=== PATIENT | female | born 1965 | race Caucasian/White ===

== ENCOUNTER 2020-04-27 18:42 | Inpatient (IN) | payer OTHER ==
[~2020-04-27] VITALS: Ht 160 cm; Wt 81.6 kg
[2020-04-27 19:11] LABS: HEMOGLOBIN 10.6 gm/dl (12.3-15.3); RED BLOOD COUNT 3.64 M/UL (4.00-5.10); WHITE BLOOD COUNT 14.1 K/UL (4.5-11.0)
[2020-04-27 19:31] LABS: BUN/CREATININE RATIO 61 (0-10)
[2020-04-28 04:25] LABS: WHITE BLOOD COUNT 13.8 K/UL (4.5-11.0)
[2020-04-28 04:44] LABS: RED BLOOD COUNT 3.09 M/UL (4.00-5.10)
[2020-04-28 04:49] LABS: BUN/CREATININE RATIO 58 (0-10)
[2020-04-28] MEDS ORDERED: PAXIL20 MG PO (13:14)
[2020-04-28] MEDS ORDERED: GLIPIZIDE5 MG PO (13:14)
[2020-04-28] MEDS ORDERED: AMANTADINE50 MG/5 ML GT (13:14)
[2020-04-28] MEDS ORDERED: TEGRETOL 200 M200 MG PO (13:15)
[2020-04-28] MEDS ORDERED: LIPITOR20 MG PO (13:15)
[2020-04-28] MEDS ORDERED: BISACODYL10 MG PR (13:15)
[2020-04-28] MEDS ORDERED: IPRAT-ALBUT 0.5-3 ML INH (13:16)
[2020-04-28] MEDS ORDERED: DAILY VALUE1 EACH PO (13:16)
[2020-04-28] MEDS ORDERED: CLARITIN10 MG PO (13:16)
[2020-04-28] MEDS ORDERED: PROTONIX40 MG PO (13:17)
[2020-04-28] MEDS ORDERED: ASPIRIN81 MG GT (13:17)
[2020-04-28] MEDS ORDERED: GLUCOPHAGE1000 MG PO (13:17)
[2020-04-28] MEDS ORDERED: LOPRESSOR50 MG PO (13:17)
[2020-04-28] MEDS ORDERED: MIRALAX17 GM PO (13:17)
[2020-04-28] MEDS ORDERED: IBUPROFEN200 MG PO (13:18)
[2020-04-28] MEDS ORDERED: TECFIDERA1 EACH PO (13:21)
[2020-04-28 19:14] LABS: ACINETOBACTER BAUMANNII Not Detected (Negative); CANDIDA ALBICANS Not Detected (Negative); CANDIDA KRUSEI Not Detected (Negative); CANDIDA TROPICALIS Not Detected (Negative); ENTEROCOCCUS Not Detected (Negative); ESCHERICHIA COLI Not Detected (Negative); HAEMOPHILUS INFLUENZAE Not Detected (Negative); KLEBSIELLA OXYTOCA Not Detected (Negative); KLEBSIELLA PNEUMONIAE Not Detected (Negative); KPC-CARBAPENEM-RESISTANCE GENE Not Detected (Negative); PROTEUS Not Detected (Negative); PSEUDOMONAS AERUGINOSA Not Detected (Negative); SERRATIA MARCESANS Not Detected (Negative); STAPHYLOCOCCUS AUREUS Not Detected (Negative); STREP AGALACTIAE (GROUP B) Not Detected (Negative); STREP PYOGENES (GROUP A) Not Detected (Negative); STREPTOCOCCUS Not Detected (Negative); vanA/B (VANCOMYCIN RESIST GENE Not Detected (Negative)
[2020-04-28 20:40] LABS: mecA (METHICILLIN RESIST GENE DETECTED (Negative)
[2020-04-28 20:42] LABS: STAPHYLOCOCCUS DETECTED (Negative)
[2020-04-29 03:59] LABS: HEMOGLOBIN 7.8 gm/dl (12.3-15.3)
[2020-04-29 04:00] LABS: RED BLOOD COUNT 2.66 M/UL (4.00-5.10); WHITE BLOOD COUNT 9.1 K/UL (4.5-11.0)
[2020-04-29 04:36] LABS: BUN/CREATININE RATIO 55 (0-10)
[2020-04-30 06:37] LABS: HEMOGLOBIN 7.6 gm/dl (12.3-15.3); RED BLOOD COUNT 2.61 M/UL (4.00-5.10); WHITE BLOOD COUNT 8.4 K/UL (4.5-11.0)
[2020-04-30 07:13] LABS: BUN/CREATININE RATIO 57 (0-10)
[2020-05-01 06:43] LABS: HEMOGLOBIN 7.7 gm/dl (12.3-15.3); RED BLOOD COUNT 2.66 M/UL (4.00-5.10); WHITE BLOOD COUNT 7.1 K/UL (4.5-11.0)
[2020-05-01 08:31] LABS: BUN/CREATININE RATIO 36 (0-10)
[2020-05-01 19:08] LABS: ADENOVIRUS F 40/41 Not Detected (Not Detected); ASTROVIRUS Not Detected (Not Detected); C DIFFICILE TOXIN A/B Not Detected (Not Detected); CAMPYLOBACTER Not Detected (Not Detected); CRYPTOSPORIDIUM Not Detected (Not Detected); CYCLOSPORA CAYETANENSIS Not Detected (Not Detected); ENTAMOEBA HISTOLYTICA Not Detected (Not Detected); ENTEROAGGREGATIVE E COLI Not Detected (Not Detected); ENTEROPATHOGENIC E COLI Not Detected (Not Detected); ENTEROTOXIGENIC E COLI Not Detected (Not Detected); GIARDIA LAMBLIA Not Detected (Not Detected); NOROVIRUS GI/GII Not Detected (Not Detected); PLESIOMONAS SHIGELLOIDES Not Detected (Not Detected); ROTAVIRUS A Not Detected (Not Detected); SALMONELLA Not Detected (Not Detected); SAPOVIRUS Not Detected (Not Detected); SHIGA-TOXIN-PRODUCING E COLI Not Detected (Not Detected); SHIGELLA/ENTEROINVASIVE E COLI Not Detected (Not Detected); VIBRIO Not Detected (Not Detected); VIBRIO CHOLERAE Not Detected (Not Detected); YERSINIA ENTEROCOLITICA Not Detected (Not Detected)
[2020-05-02 04:54] LABS: HEMOGLOBIN 8.8 gm/dl (12.3-15.3)
[2020-05-02 04:55] LABS: RED BLOOD COUNT 3.06 M/UL (4.00-5.10); WHITE BLOOD COUNT 8.9 K/UL (4.5-11.0)
[2020-05-02 05:19] LABS: BUN/CREATININE RATIO 39 (0-10)
--- NOTE | 2020-05-02 11:08 | NUR ---
PATIENTS TEMPERATURE NOTED TO BE 101.7 F AXILLARY AT THIS TIME. PROVIDER MADE AWARE WITH NEW ORDERS GIVEN. WILL CONTINUE TO MONITOR.
[2020-05-03 10:08] LABS: ADENOVIRUS F 40/41 Not Detected (Not Detected); ASTROVIRUS Not Detected (Not Detected); C DIFFICILE TOXIN A/B Not Detected (Not Detected); CAMPYLOBACTER Not Detected (Not Detected); CRYPTOSPORIDIUM Not Detected (Not Detected); CYCLOSPORA CAYETANENSIS Not Detected (Not Detected); ENTAMOEBA HISTOLYTICA Not Detected (Not Detected); ENTEROAGGREGATIVE E COLI Not Detected (Not Detected); ENTEROPATHOGENIC E COLI Not Detected (Not Detected); ENTEROTOXIGENIC E COLI Not Detected (Not Detected); GIARDIA LAMBLIA Not Detected (Not Detected); NOROVIRUS GI/GII Not Detected (Not Detected); PLESIOMONAS SHIGELLOIDES Not Detected (Not Detected); ROTAVIRUS A Not Detected (Not Detected); SALMONELLA Not Detected (Not Detected); SAPOVIRUS Not Detected (Not Detected); SHIGA-TOXIN-PRODUCING E COLI Not Detected (Not Detected); SHIGELLA/ENTEROINVASIVE E COLI Not Detected (Not Detected); VIBRIO Not Detected (Not Detected); VIBRIO CHOLERAE Not Detected (Not Detected); YERSINIA ENTEROCOLITICA Not Detected (Not Detected)
[2020-05-03 13:00] LABS: HEMOGLOBIN 8.5 gm/dl (12.3-15.3); RED BLOOD COUNT 2.92 M/UL (4.00-5.10)
[2020-05-03 13:06] LABS: WHITE BLOOD COUNT 14.1 K/UL (4.5-11.0)
[2020-05-03 13:33] LABS: BUN/CREATININE RATIO 77 (0-10)
[2020-05-04 04:41] LABS: HEMOGLOBIN 8.5 gm/dl (12.3-15.3); RED BLOOD COUNT 2.89 M/UL (4.00-5.10); WHITE BLOOD COUNT 13.8 K/UL (4.5-11.0)
[2020-05-04 05:00] LABS: BUN/CREATININE RATIO 63 (0-10)
[2020-05-05 06:11] LABS: BUN/CREATININE RATIO 49 (0-10)
[2020-05-05 06:17] LABS: HEMOGLOBIN 8.6 gm/dl (12.3-15.3); RED BLOOD COUNT 2.93 M/UL (4.00-5.10); WHITE BLOOD COUNT 8.8 K/UL (4.5-11.0)
[2020-05-06 05:36] LABS: BUN/CREATININE RATIO 41 (0-10); HEMOGLOBIN 8.3 gm/dl (12.3-15.3); RED BLOOD COUNT 2.76 M/UL (4.00-5.10); WHITE BLOOD COUNT 7.6 K/UL (4.5-11.0)
[2020-05-09] MEDS ORDERED: LEVOFLOXACIN750 MG PO (13:11)
== END 2020-05-09 18:12 | disposition home health service (06) | DRG 193 ==
LOC: ER1 18:42 → EDBD 18:42 → CDU 04-28 00:27 → PROG CARE 04-28 00:27 → MED SURG 4 04-28 00:27 → PROG CARE 04-28 16:35 → MED SURG 4 04-29 21:03
PROVIDERS: Emergency Medicine; Internal Medicine; ADMIT Internal Medicine
PROC: 0T2BX0Z Change Drainage Device in Bladder, External Approach (ICD-10-PCS; principal; 2020-04-28)
DX: J18.9 Pneumonia, unspecified organism (principal); J96.21 Acute and chronic respiratory failure with hypoxia; G93.41 Metabolic encephalopathy; J44.1 Chronic obstructive pulmonary disease with (acute) exacerbation; E11.9 Type 2 diabetes mellitus without complications; G35 Multiple sclerosis; N31.9 Neuromuscular dysfunction of bladder, unspecified; Z20.822 Contact with and (suspected) exposure to COVID-19; J44.9 Chronic obstructive pulmonary disease, unspecified; E86.0 Dehydration; D64.9 Anemia, unspecified; R13.10 Dysphagia, unspecified; E87.6 Hypokalemia; X38.XXXA Flood, initial encounter; Z74.01 Bed confinement status; Y92.019 Unspecified place in single-family (private) house as the place of occurrence of the external cause; Z99.81 Dependence on supplemental oxygen; I25.2 Old myocardial infarction; Z79.84 Long term (current) use of oral hypoglycemic drugs; Z93.1 Gastrostomy status
CPT/HCPCS: 0240U; 36415; 36600; 70450; 70553; 71045; 80048; 80053; 80202; 81001; 82550; 82553; 82803; 82962; 83540; 83550; 83605; 83690; 83735; 83874; 83880; 84100; 84132; 84439; 84443; 84484; 85025; 85027; 85045; 85379; 85610; 85730; 87040; 87077; 87081; 87086; 87150; 87186; 87507; 92526; 92610; 93005; 94640; 94664; 94760; 96365; 96366; 96367; 96368; 96375; 99285; A6212; A9577; J0456; J0696; J1650; J1956; J2920; J3370; J3480; J7030; J7070; Q9967

== ENCOUNTER 2021-04-07 18:04 | Inpatient (IN) | payer OTHER ==
[~2021-04-07] VITALS: Ht 160 cm; Wt 79.4 kg
[~2021-04-07 18:04] MED LIST: AMANTADINE50 MG/5 ML GT; ASPIRIN81 MG GT; BISACODYL10 MG PR; CLARITIN10 MG PO; DAILY VALUE1 EACH PO; GLIPIZIDE5 MG PO; GLUCOPHAGE1000 MG PO; IBUPROFEN200 MG PO; IPRAT-ALBUT 0.5-3 ML INH; LEVOFLOXACIN750 MG PO; LIPITOR20 MG PO; LOPRESSOR50 MG PO; MIRALAX17 GM PO; PAXIL20 MG PO; PROTONIX40 MG PO; TECFIDERA1 EACH PO; TEGRETOL 200 M200 MG PO
[2021-04-07 19:29] LABS: HEMOGLOBIN 11.8 gm/dl (12.3-15.3); RED BLOOD COUNT 4.12 M/UL (4.00-5.10); WHITE BLOOD COUNT 8.1 K/UL (4.5-11.0)
[2021-04-07 20:06] LABS: BUN/CREATININE RATIO 61 (0-10)
[2021-04-08 04:38] LABS: RED BLOOD COUNT 3.21 M/UL (4.00-5.10); WHITE BLOOD COUNT 5.8 K/UL (4.5-11.0)
[2021-04-08 05:08] LABS: BUN/CREATININE RATIO 53 (0-10)
[2021-04-08] MEDS ORDERED: TRAZODONE HCL150 MG PO (13:56)
[2021-04-08] MEDS ORDERED: POTASSIUM20 MEQ/15 PO (14:08)
[2021-04-08] MEDS ORDERED: FUROSEMIDE40 MG PO (14:10)
[2021-04-08] MEDS ORDERED: BUSPIRONE HCL5 MG PO (14:12)
[2021-04-08] MEDS ORDERED: MIRTAZAPINE7.5 MG PO (14:13)
[2021-04-08] MEDS ORDERED: SENNA8.6 MG PO (14:15)
[2021-04-08] MEDS ORDERED: ACETAMINOPHEN325 MG PO (14:21)
[2021-04-08] MEDS ORDERED: KEPPRA 500 MG500 MG PO (14:25)
[2021-04-08] MEDS ORDERED: IPRAT-ALBUT 0.5-3 ML INH (18:38)
[2021-04-09 03:36] LABS: BUN/CREATININE RATIO 37 (0-10)
--- NOTE | 2021-04-09 06:31 | NUR ---
LATE ENTRY FOR 04/08/2021 @ 22:25 - Patient family member called this RN. During phone call, family member stated that patient gets Glucerna 1.5 Carb Steady 5 times a day as boluses. Order obtained to continue pt home feedings.
[2021-04-10] MEDS ORDERED: CEFUROXIME500 MG PO (13:45)
[2021-04-10] MEDS ORDERED: DECADRON6 MG PO (13:45)
== END 2021-04-11 16:57 | disposition home or self-care (01) | DRG 177 ==
LOC: ER1 18:04 → CDU 21:33 → MED SURG 4 04-08 22:15
PROVIDERS: Internal Medicine; Preventive Medicine Occupational Medicine; ADMIT Internal Medicine
PROC: 8E0ZXY6 Isolation (ICD-10-PCS; principal; 2021-04-07)
PROC: 3E0333Z Introduction of Anti-inflammatory into Peripheral Vein, Percutaneous Approach (ICD-10-PCS; 2021-04-07)
PROC: XW033E5 Introduction of Remdesivir Anti-infective into Peripheral Vein, Percutaneous Approach, New Technology Group 5 (ICD-10-PCS; 2021-04-08)
DX: U07.1 COVID-19 (principal); J12.82 Pneumonia due to coronavirus disease 2019; J96.01 Acute respiratory failure with hypoxia; T83.518A Infection and inflammatory reaction due to other urinary catheter, initial encounter; E11.52 Type 2 diabetes mellitus with diabetic peripheral angiopathy with gangrene; N39.0 Urinary tract infection, site not specified; I96 Gangrene, not elsewhere classified; E87.2 Acidosis; G35 Multiple sclerosis; R53.81 Other malaise; R13.10 Dysphagia, unspecified; R31.9 Hematuria, unspecified; E78.5 Hyperlipidemia, unspecified; E86.0 Dehydration; B96.89 Other specified bacterial agents as the cause of diseases classified elsewhere; E87.6 Hypokalemia; L89.892 Pressure ulcer of other site, stage 2; N31.9 Neuromuscular dysfunction of bladder, unspecified; Y84.6 Urinary catheterization as the cause of abnormal reaction of the patient, or of later complication, without mention of misadventure at the time of the procedure; I25.2 Old myocardial infarction; Z93.1 Gastrostomy status; Z98.890 Other specified postprocedural states; Z79.899 Other long term (current) drug therapy; Z79.82 Long term (current) use of aspirin; Z79.4 Long term (current) use of insulin
CPT/HCPCS: 0240U; 36415; 36600; 70450; 71045; 80048; 80053; 81001; 82550; 82553; 82803; 82962; 83605; 83690; 83874; 83880; 84484; 85025; 85652; 86140; 87077; 87086; 87186; 93005; 94760; 96374; 96375; 99284; J0248; J0696; J1100; J1650; J3480; J7030